=== PATIENT | male | born 1950 | race African-American/Black ===

== ENCOUNTER 2020-09-07 16:22 | Emergency (ER) | payer MEDICARE, MEDICAID ==
[~2020-09-07] VITALS: Ht 183 cm; Wt 81.6 kg
[2020-09-07] MEDS ORDERED: DEXTROSE 50% 50 ML (IMS) SYR ONE ×2 (16:28→19:46)
[2020-09-07] MEDS ORDERED: LORazepam INJ 2 MG/ML (ATIVAN) VIAL ONE ×2 (16:34→20:37)
[2020-09-07 16:41] LABS: BASOPHILS # (AUTO) 0.1 10^3/uL (0.0-0.1); BASOPHILS % (AUTO) 1 % (0-10); EOSINOPHILS # (AUTO) 0.2 10^3/uL (0.0-0.3); EOSINOPHILS % (AUTO) 2 % (0-10); HEMATOCRIT 35 % (40-54); HEMOGLOBIN 11.2 g/dL (13.3-17.7); LYMPHOCYTES % (AUTO) 40 % (12-44); MEAN CORPUSCULAR HEMOGLOBIN 32 pg (25-34); MEAN CORPUSCULAR HGB CONC 32 g/dL (32-36); MEAN CORPUSCULAR VOLUME 100 fL (80-99); MEAN PLATELET VOLUME 8.8 fL (9.0-12.2); MONOCYTES # (AUTO) 1.1 10^3/uL (0.0-1.0); MONOCYTES % (AUTO) 11 % (0-12); NEUTROPHILS # (AUTO) 4.7 10^3/uL (1.8-7.8); NEUTROPHILS % (AUTO) 47 % (42-75); PLATELET COUNT 266 10^3/uL (130-400); WHITE BLOOD COUNT 10.1 10^3/uL (4.3-11.0)
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
[2020-09-07] MEDS ORDERED: LORazepam INJ 2 MG/ML (ATIVAN) VIAL IVP ONE ×2 (16:45→20:45)
[2020-09-07] MEDS ORDERED: HALOPERIDOL 5 MG/ML (HALDOL) VIAL IM ONE ×2 (16:45→21:00)
[2020-09-07 16:49] LABS: ALBUMIN 4.3 GM/DL (3.2-4.5)
[2020-09-07 16:50] LABS: CHLORIDE 105 MMOL/L (98-107); POTASSIUM 4.3 MMOL/L (3.6-5.0); SODIUM 143 MMOL/L (135-145)
[2020-09-07 16:51] LABS: CALCIUM 9.9 MG/DL (8.5-10.1)
[2020-09-07 16:53] LABS: CARBON DIOXIDE 17 MMOL/L (21-32)
[2020-09-07 16:54] LABS: BILIRUBIN,TOTAL 0.2 MG/DL (0.1-1.0); GLUCOSE 60 MG/DL (70-105)
[2020-09-07 16:55] LABS: ALKALINE PHOSPHATASE 106 U/L (40-136); GFR ESTIMATED > 60
[2020-09-07 16:56] LABS: BUN/CREATININE RATIO 17
[2020-09-07 16:58] LABS: ALANINE AMINOTRANSFERASE 24 U/L (0-55)
[2020-09-07 16:59] LABS: BILIRUBIN,URINE NEGATIVE (NEGATIVE); CLARITY,URINE CLEAR; COLOR,URINE YELLOW; GLUCOSE, URINE (UA) 1+ (NEGATIVE); KETONES,URINE NEGATIVE (NEGATIVE); LEUKOCYTE ESTERASE ,URINE NEGATIVE (NEGATIVE); NITRITE,URINE NEGATIVE (NEGATIVE); PROTEIN,URINE 1+ (NEGATIVE)
--- NOTE | 2020-09-07 17:06 | Diagnostic Imaging Report ---
INDICATION: Confusion, mental status changes. COMPARISON: None. FINDINGS: Single view of the chest demonstrates cardiac enlargement with slight central vascular congestion. There is no pneumothorax. Osseous structures are stable. IMPRESSION: Slight central vascular congestion. Dictated by: Dictated on workstation # [id number]
[2020-09-07 17:11] LABS: AMORPHOUS SEDIMENT,UR RARE AMOR URATES /LPF; BACTERIA,URINE TRACE /HPF; WBC,URINE RARE /HPF
[2020-09-07] MEDS ORDERED: DEXTROSE 50% 50 ML (IMS) SYR IV ONE (19:45)
[2020-09-07] MEDS ORDERED: HALOPERIDOL 5 MG/ML (HALDOL) VIAL ONE (20:57)
[2020-09-08 00:05] VITALS: BP 164/94
== END 2020-09-08 00:04 ==
LOC: ER 16:23
DX: R45.1 Restlessness and agitation (principal); R45.6 Violent behavior; E16.2 Hypoglycemia, unspecified; Z20.822 Contact with and (suspected) exposure to COVID-19
CPT/HCPCS: 36415; 51701; 71045; 80053; 81000; 82947; 85025; 87636; 93005; 96372; 96374; 96375; 96376